=== PATIENT | female | born 1970 ===

== ENCOUNTER 2017-07-07 18:27 | Emergency (ER) | payer OTHER ==
[2017-07-07 18:39] VITALS: TEMP 99.3
[2017-07-07] MEDS ORDERED: Lidocaine 1% Inj (20ml) ONE (19:57)
--- NOTE | 2017-07-07 20:27 | ED PDOC ---
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 Patient stated after getting out of the shower, she slipped and fell down on the floor. Last Tetanus was 5 years. Denies ROMAN, dizziness, diplopia, dysarthria, weakness, paresthesias, n/v, neck pain, or abnormal gait. Time/Duration: Prior to Arrival Context: Home Past Medical History - Provider Review Nursing Documentation Reviewed: Yes - Psychiatric Hx Substance Use: No - Surgical History Other/Comment: ADDENOIDS REMOVED - Anesthesia Hx Anesthesia: Yes Family/Social History - Physician Review Nursing Documentation Reviewed: Yes Family/Social History: Other (noncontributory) Smoking Status: Never Smoked Hx Alcohol Use: No Hx Substance Use: No Allergies/Home Meds Allergies/Adverse Reactions: Allergies No Known Allergies Allergy (Verified 07/07/17 18:30) Review of Systems - Review of Systems Constitutional: Normal. absent: Fatigue, Weight Change, Fevers Eyes: Normal ENT: Normal. absent: Rhinorrhea Respiratory: Normal. absent: SOB Cardiovascular: Normal. absent: Chest Pain Gastrointestinal: Normal. absent: Abdominal Pain, Nausea, Vomiting Genitourinary Female: Normal Musculoskeletal: Normal Skin: Laceration (see hpi) Neurological: Normal. absent: Headache, Dizziness, Gait Changes, Disequilibrium Endocrine: Normal Hemo/Lymphatic: Normal Psychiatric: Normal Physical Exam Vital Signs Temp Pulse Resp BP Pulse Ox 07/07/17 21:16 79 16 125/64 99 07/07/17 18:41 99.3 F 97 H 18 120/83 98 07/07/17 18:31 99.3 F 97 H 16 120/83 98 Temperature: Afebrile Blood Pressure: Normal Pulse: Regular Respiratory Rate: Normal Appearance: Positive for: Well-Appearing, Non-Toxic, Comfortable Pain Distress: None Mental Status: Positive for: Alert and Oriented X 3 - Systems Exam Head: Present: Normocephalic, Other (no raccon sign. No taylor sign) Pupils: Present: PERRL, Other (no hyphema) Extroacular Muscles: Present: EOMI. No: Entrapment Conjunctiva: Present: Normal Ears: Present: Normal, NORMAL TM, Other (no hemotympanum) Mouth: Present: Moist Mucous Membranes Neck: Present: Normal Range of Motion Respiratory/Chest: Present: Clear to Auscultation, Good Air Exchange. No: Respiratory Distress, Accessory Muscle Use Cardiovascular: Present: Regular Rate and Rhythm, Normal S1, S2. No: Murmurs Abdomen: Present: Normal Bowel Sounds. No: Tenderness, Distention, Peritoneal Signs Back: Present: Normal Inspection Upper Extremity: Present: Normal Inspection, Normal ROM, NORMAL PULSES, Neurovascularly Intact, Capillary Refill < 2s. No: Cyanosis, Edema Lower Extremity: Present: Normal Inspection, NORMAL PULSES, Normal ROM. No: Edema, CALF TENDERNESS Neurological: Present: GCS=15, CN II-XII Intact, Speech Normal, Motor Func Grossly Intact, Normal Sensory Function, Normal Cerebellar Funct, Gait Normal, Memory Normal Skin: Present: Warm, Dry, Normal Color, Laceration ((+) 5 cm laceration right chin). No: Rashes Psychiatric: Present: Alert, Oriented x 3, Normal Insight, Normal Concentration Medical Decision Making ED Course and Treatment: 07/07/17 20:28 Re-evaluation. Patient feels better. Discussed results and plan with patient who expresses understanding. All questions answered and there is agreement with the plan to discharge home with instructions. Patient stable for discharge. Return if symptoms persist or worsen. Patient was recommended to f/u pmd in 2 days for wound check and to return to emergency if infection occurs. She was recommended to return to ED sooner if she develops nausea, vomiting, diplopia, ROMAN, dizziness, or abnormal gait Re-evaluation Time: 20:28 Reassessment Condition: Re-examined, Improved - Medication Orders Current Medication Orders: Discontinued Medications Cephalexin Monohydrate (Keflex) 500 mg PO STAT STA PRN Reason: Protocol Stop: 07/07/17 20:29 Last Admin: 07/07/17 20:48 Dose: 500 mg Tetanus/Reduced Diphtheria/Acell Pertussis (Boostrix Vaccine Inj) 0.5 ml IM .ONCE ONE Stop: 07/07/17 20:50 Last Admin: 07/07/17 20:56 Dose: 0.5 ml Immunization Registry Document 07/07/17 20:56 YP (Rec: 07/07/17 20:56 YP [facility] [id number]) Immunization Registry Consent Date 06/09/17 - Procedure PROCEDURE NOTE (Text): 07/07/17 20:57 PROCEDURE: LACERATION REPAIR Performed by the emergency provider Location: right chin Length: 5 cm Description: clean wound edges, no foreign bodies Distal CMS: Normal. No deficits. Neurovascularly intact. Anesthesia: Lidocaine 1% with Epi. Approx. 2 cc Preparation: The wound was cleaned with NS and Betadyne. The area was prepped and draped in the usual sterile fashion. Exploration: The wound was explored and no foreign bodies were found. Procedure: The wound was closed with Vicryl, 6-0, running subcuticular sutures. There was good approximation. Post-Procedure: Good closure and hemostasis. The patient tolerated the procedure Disposition/Present on Arrival - Present on Arrival Any Indicators Present on Arrival: No History of DVT/PE: No History of Uncontrolled Diabetes: No Urinary Catheter: No History of Decub. Ulcer: No History Surgical Site Infection Following: None - Disposition Have Diagnosis and Disposition been Completed?: Yes Diagnosis: Facial laceration Disposition: HOME/ ROUTINE Disposition Time: 20:29 Patient Plan: Discharge Condition: IMPROVED Discharge Instructions (ExitCare): Care For Your Absorbable Stitches (ED), Facial Laceration (ED) Print Language: [place] Additional Instructions: llame a mendiola doctor para lc examination de la herida en 2-3 fernandez. mantenga la herida limpia y seca for 2 disa, despues, limpie la herida con agua y jabon diariamente. [place] la medicina hima esta instruido. Regrese la emergencia si herida se infecta. los puntos son absorbibles, ellos se caeran solos Prescriptions: Cephalexin [cephalexin] 500 mg PO QID #20 cap Referrals: PCP,NO [Primary Care Provider] - Follow up with primary [facility] [Outside] - Follow up with primary [facility] [Outside] - Follow up with primary Forms: [employer] (Kyrgyz)
[2017-07-07] MEDS ORDERED: TDAP Vaccine 0.5 mL Syr IM ONE (20:49)
[2017-07-07 21:18] VITALS: BP 125/64; PULSE 79; RESP 16; O2SAT 99
== END 2017-07-07 21:18 | disposition home or self-care (01) ==
LOC: ED 18:27
DX: S01.81XA Laceration without foreign body of other part of head, initial encounter (principal); W01.0XXA Fall on same level from slipping, tripping and stumbling without subsequent striking against object, initial encounter; Y93.E1 Activity, personal bathing and showering; Y92.009 Unspecified place in unspecified non-institutional (private) residence as the place of occurrence of the external cause; Z23 Encounter for immunization

== ENCOUNTER 2018-11-26 17:32 | Emergency (ER) | payer MEDICAID, OTHER ==
[2018-11-26 17:37] VITALS: BMI 28.7
[2018-11-26 17:41] VITALS: BP 132/80; PULSE 99; RESP 18; TEMP 98.5; O2SAT 96
[2018-11-26] MEDS ORDERED: Lidocaine 1% Inj (20ml) IJ STA (17:49)
[2018-11-26] MEDS ORDERED: Bacitracin 500 Units/gm Oint Foilpak UD TOP ONE (17:49)
--- NOTE | 2018-11-26 18:27 | ED PDOC ---
Arrival/HPI - General Chief Complaint: Abnormal Skin Integrity Time Seen by Provider: 11/26/18 17:34 Historian: Patient - History of Present Illness Narrative History of Present Illness (Text): 48 y/o female with no significant PMH presents to the ED c/o left hand dorsal 1st and 2nd digit laceration that occurred around 1720 this afternoon. Pt was cutting food when she sliced her left hand with the kitchen knife. Unable to control bleeding at home, prompting visit to ED. Last tetanus less than 5 years ago. Denies numbness, weakness, paresthesias, lacerations elsewhere, or any other associated symptoms. Past Medical History - Provider Review Nursing Documentation Reviewed: Yes - Infectious Disease Hx of Infectious Diseases: None - Psychiatric Hx Substance Use: No - Surgical History Other/Comment: ADDENOIDS REMOVED - Anesthesia Hx Anesthesia: Yes Family/Social History - Physician Review Nursing Documentation Reviewed: Yes Family/Social History: No Known Family HX Smoking Status: Never Smoked Hx Alcohol Use: No Hx Substance Use: No Allergies/Home Meds Allergies/Adverse Reactions: Allergies No Known Allergies Allergy (Verified 11/26/18 17:37) Review of Systems - Review of Systems Constitutional: Normal. absent: Fevers Respiratory: Normal. absent: SOB, Cough Cardiovascular: Normal. absent: Chest Pain, Palpitations Gastrointestinal: Normal. absent: Nausea, Vomiting Musculoskeletal: Normal. absent: Back Pain, Neck Pain Skin: Laceration (left hand 1st and 2nd digits) Neurological: Normal. absent: Headache, Dizziness Physical Exam Vital Signs Reviewed: Yes Vital Signs Temp Pulse Resp BP Pulse Ox 11/26/18 17:40 98.5 F 99 H 18 132/80 96 Temperature: Afebrile Blood Pressure: Normal Pulse: Regular Respiratory Rate: Normal Appearance: Positive for: Well-Appearing, Non-Toxic, Comfortable Pain Distress: None Mental Status: Positive for: Alert and Oriented X 3 - Systems Exam Head: Present: Atraumatic, Normocephalic Pupils: Present: PERRL Extroacular Muscles: Present: EOMI Conjunctiva: Present: Normal Mouth: Present: Moist Mucous Membranes Neck: Present: Normal Range of Motion. No: Meningeal Signs Respiratory/Chest: Present: Clear to Auscultation, Good Air Exchange. No: Respiratory Distress, Accessory Muscle Use Cardiovascular: Present: Regular Rate and Rhythm, Normal S1, S2, Peripheal Pulses Present Back: Present: Normal Inspection. No: CVA Tenderness Upper Extremity: Present: Normal ROM, NORMAL PULSES, Neurovascularly Intact, Capillary Refill < 2s, Other (1cm to left dorsal distal thumb, 1.5cm laceration to left mid lateral dorsal 2nd digit; small amount of active bleeding; no tendon involvement or FB on exam; full strength against resistance in both flexion and extension). No: Cyanosis, Edema, Temperature Abnormalties Lower Extremity: Present: Normal ROM Neurological: Present: GCS=15, CN II-XII Intact, Speech Normal, Motor Func Grossly Intact, Normal Sensory Function, Gait Normal Skin: Present: Warm, Dry, Normal Color. No: Rashes Psychiatric: Present: Alert, Oriented x 3, Normal Insight, Normal Concentration, Normal Affect, Normal Mood Medical Decision Making ED Course and Treatment: Initial Plan: * Wound irrigation * Suture repair * Wound dressing and finger splint Wound irrigated by mine technician Ray. Left hand 1st and 2nd digit lacerations locally anesthetized with 1% lidocaine after betadine prep. Left hand 1st digit laceration closed with 2 simple interrupted 4-0 nylon sutures without complication under sterile technique. Wound edges well approximated, hemostasis achieved. Left hand 2nd digit laceration closed with 3 simple interrupted 4-0 nylon sutures without complication under sterile technique. Wound edges well approximated, hemostasis achieved. Patient tolerated procedure well without complication, continues to have full ROM and neurovascular status after repair. Advised return in 10-12 days for removal. Wound care instructions discussed. Dressing and fingersplint applied by mine technician. Neurovascular exam remains unchanged. Advised PMD and hand followup. Diagnostic testing results and plan of care discussed with patient. Strict instructions given regarding prescription use, importance of followup, and signs/symptoms to return to ER including fever, chills, signs of wound infection, or any other new/worsening symptoms. Pt verbalized understanding of discussion. Patient is A&Ox3, ambulating with steady gait, with vital signs stable for discharge. - Medication Orders Current Medication Orders: Discontinued Medications Bacitracin (Bacitracin) 1 ea TOP ONCE ONE Stop: 11/26/18 17:50 Last Admin: 11/26/18 17:58 Dose: 1 ea Lidocaine HCl (Lidocaine 1% (20ml)) 10 ml IJ STAT STA Stop: 11/26/18 17:50 Last Admin: 11/26/18 17:58 Dose: 1 % Comments: given by ER PA Procedure: Wound Repair - Time Out Time Out: Side verified, Site verified, Patient ID confirmed, Sterile procedures obs. - Procedure Procedure: Wound Repair: Suture Repair - Consent Obtained Consent obtained: Verbal - Performed by Performed by: Mid-level Provider - Indications Indication(s):: Laceration - Location Location:: Left, Hand Finger:: Left, Thumb, Index Shape:: Linear Dimensions Length cm: thumb: 1cm index:1.5cm Depth:: Epidermis - Anesthetic Technique Anesthetic Technique: Local Local/Regional Anesthetic:: Lidocaine 1% - Debris Debris:: None - Irrigated Irrigated with ml of normal saline: 1000 - Complexity Complexity:: Simple (one layer) - Wound repair method Sutures:: # (2 on thumb, 3 on ring finger), Size (4-0), Type (nylon), Technique (simple interrupted) - Complications Complications: None - Patient tolerated procedure Patient Tolerated Procedure:: Well Disposition/Present on Arrival - Present on Arrival Any Indicators Present on Arrival: No History of DVT/PE: No History of Uncontrolled Diabetes: No Urinary Catheter: No History of Decub. Ulcer: No History Surgical Site Infection Following: None - Disposition Have Diagnosis and Disposition been Completed?: Yes Diagnosis: Laceration Disposition: HOME/ ROUTINE Disposition Time: 18:00 Patient Plan: Discharge Condition: IMPROVED Discharge Instructions (ExitCare): Wound Care (DC), Laceration Repair With Stitches (DC) Print Language: PERUVIAN Additional Instructions: REGRESAR EN 10-12 ALFARO PARA LA REMOCIN SUTURA [facility] Keflex cada 6 horas barbara 7 alfaro. Mantenga la herida limpia, seca y cubierta barbara 48 horas. Mantener la frula barbara 48 horas. Despus de 48 horas, la frula puede desprenderse y puede lavarse suavemente con agua y jabn. Mantener la herida limpia Seguimiento con primaria en 2 alfaro. Seguimiento con mano mdico dentro de 2 alfaro. Regrese a la connie de emergencias con cualquier sntoma nuevo o que empeore. Prescriptions: Cephalexin [Keflex] 500 mg PO QID 7 Days #28 capsule Referrals: [facility] at [facility] [place] [Outside] - Follow up with primary Jose Carlos Tai MD [Staff Provider] - Follow up with primary Carla Perkins MD [Medical Doctor] - Follow up with primary Forms: [employer] (Turkish), WORK NOTE
== END 2018-11-26 19:12 | disposition home or self-care (01) ==
LOC: ED 17:32
DX: S61.012A Laceration without foreign body of left thumb without damage to nail, initial encounter (principal); S61.211A Laceration without foreign body of left index finger without damage to nail, initial encounter; W26.0XXA Contact with knife, initial encounter; Y93.G1 Activity, food preparation and clean up; Y92.000 Kitchen of unspecified non-institutional (private) residence as the place of occurrence of the external cause